=== PATIENT | female | born 1995 | race Caucasian/White ===

== ENCOUNTER 2022-04-23 01:16 | Emergency (ER) | payer MEDICARE, MEDICAID, SELFPAY ==
[2022-04-23 01:24] VITALS: BP 117/82; PULSE 124; RESP 18; TEMP 37; O2SAT 95; BMI 44.9
--- NOTE | 2022-04-23 01:33 | XRR_ITS ---
PROCEDURE INFORMATION: Exam: XR Chest Exam date and time: 04/23/2022 1:42 AM Age: 26 years old Clinical indication: Cough and fever; Patient HX: Cough with fever TECHNIQUE: Imaging protocol: Radiologic exam of the chest. Views: 1 view. COMPARISON: No relevant prior studies available. FINDINGS: Lungs: No CHF/pulmonary edema. Poor inspiration somewhat limits evaluation, especially of the lung bases. Visible lungs appear essentially clear. Pleural spaces: No visible pneumothorax. No definite pleural fluid. Heart/Mediastinum: Heart size is within normal limits. Bones/joints: No significant acute finding. XR/XR chest 1V portable [id number] IMPRESSION: 1. No definite pneumonia or CHF. 2. Other findings discussed above.
--- NOTE | 2022-04-23 01:42 | ED_ITS ---
HPI - General Adult General: Chief complaint: General Medical Stated complaint: Flu Like Symptoms Time Seen by Provider: 04/23/22 01:17 Source: patient Mode of arrival: ambulatory Limitations: no limitations History of Present Illness: 26-year-old female states that over the last 3 days she has been having fever cough congestion along with sore throat. States her temps been up to 101 states today her shortness of breath and cough is worsened. Father states that family members have had similar symptoms as well. She denies any vomiting denies any chest pain. Associated symptoms: Deny chest pain, headache(s), nausea, rash or vomiting Review of Systems Const: Reports: fever(s), chills and body aches Eyes: Denies: blurry vision or eye discomfort ENMT: Reports: throat pain Card: Denies: chest pain Resp: Reports: non-productive cough GI: Denies: abdominal pain, nausea, vomiting or diarrhea : Denies: dysuria Musc: Denies: neck pain or back pain Skin/Breast: Denies: rash Neuro: Denies: headache(s) Psych: Denies: depression Patrick/Lymph: Denies: easy bruising All/Imm: Denies: urticaria PFSH ED PFSH: Medical History (Updated 04/23/22 @ 02:56 by Aiyana Morgan MD) No pertinent past medical history Social History (Updated 04/23/22 @ 01:42 by Aiyana Morgan MD) Substance/Drug Use: never Physical Exam Const: COMMON NORMALS: no acute distress, patient oriented x3 and healthy appearing HENMT: COMMON NORMALS: normocephalic and atraumatic HEAD & SCALP: normoceph alic and atraumatic Eye: COMMON NORMALS: Equal, round and reactive pupils present and EOMs intact bilaterally PUPIL: Yes Equal, round and reactive pupils present Neck/C-Spine: COMMON NORMALS: full ROM and supple Chest: COMMONS NORMALS: normal inspection of the chest and normal palpation of entire chest wall Resp: COMMON NORMALS: normal respiratory effort, No retractions, No use of accessory muscles and clear to auscultation bilaterally AUSCULTATION: clear to auscultation bilaterally Cardio: COMMON NORMALS: regular rhythm and No murmurs present (Cardio) RA TE: tachycardic RHYTHM: regular rhythm GI: COMMON NORMALS: Normal to inspection, nondistended, normoactive bowel sounds present, Soft to palpation, non-tender and no masses PALPATION: Yes Soft to palpation Extremity: COMMON NORMALS: normal to inspection and full ROM Neuro: COMMON NORMALS: patient oriented x3, moves all extremities and no focal motor deficits Psych: COMMON NORMALS: mental status grossly normal, Normal thought process present and cooperative THOUGHT PROCESS: Normal thought process present Skin: COMMON NORMALS: no rashes or lesions noted and no wounds GENERAL SKIN EXAM: no rashes or lesions noted Course Vital Signs: Vital signs: Vital Signs Temperature 98.6 F 04/23/22 01:24 Pulse Rate 122 H 04/23/22 01:58 Respiratory Rate 16 04/23/22 01:58 Blood Pressure 104/79 04/23/22 01:58 Pulse Oximetry 96 04/23/22 01:58 Oxygen Delivery Me thod 04/23/22 01:58 MDM - General Adult Medical Decision Making Patient presents here with fever cough body aches for 3 days she is flu positive her heart rate here is improved after IV fluid she is well-appearing here no pneumonia she is stable for discharge she is to follow-up with her PCP and return if worsening. Lab Data 04/23/22 01:50 04/23/22 01:50 Laboratory Results WBC 4.7 10^3/uL (4.0-10.0) 04/23/22 01:50 RBC 5.27 10^6/uL (4.1-5.3) 04/23/22 01:50 Hgb 14.3 g/dL (11.5-15.3) 04/23/22 01:50 Hct 44.2 % (37.0-47.0) 04/23/22 01:50 MCV 83.9 fl (81-99) 04/23/22 01:50 MCH 27.1 pg (28.0-34.0) L 04/23/22 01:50 MCHC 32.4 g/dL (30.0-36.0) 04/23/22 01:50 RDW 13.2 % (12.1-15.1) 04/23/22 01:50 Plt Count 256 10^3/cmm (130-400) 04/23/22 01:50 MPV 9.5 fL (7.4-10.4) 04/23/22 01:50 Neut % (Auto) 62.7 % 04/23/22 01:50 Lymph % (Auto) 23.6 % 04/23/22 01:50 Wilkinson % (Auto) 13.1 % 04/23/22 01:50 Eos % (Auto) 0.0 % 04/23/22 01:50 Baso % (Auto) 0.2 % 04/23/22 01:50 Neut # (Auto) 2.92 10^3/uL (1.8-7.7) 04/23/22 01:50 Lymph # (Auto) 1.1 10^3/uL (0.8-4.8) 04/23/22 01:50 Wilkinson # (Auto) 0.6 10^3/uL (0.2-0.9) 04/23/22 01:50 Eos # (Auto) 0.0 10^3/uL (0.0-0.8) 04/23/22 01:50 Baso # (Auto) 0.0 10^3/uL (0.0-0.1) 04/23/22 01:50 Nucleated RBC % (auto) 0 % 04/23/22 01:50 Nucleated RBCs # 0.0 /100WBC 04/23/22 01:50 Sodium 138 mmol/L (136-145) 04/23/22 01:50 Potassium 3.5 mmol/L (3.5-5.1) 04/23/22 01:50 Chloride 105 mmol/L (98-107) 04/23/22 01:50 Carbon Dioxide 21 mmol/L (22-29) L 04/23/22 01:50 Anion Gap 15.5 (5-19) 04/23/22 01:50 BUN 6 mg/dL (6-20) 04/23/22 01:50 Creatinine 0.8 mg/dL (0.5-0.9) 04/23/22 01:50 GFR Calculation 86.7 mL/min (90-130) L 04/23/22 01:50 Glucose 184 mg/dL (65-115) H 04/23/22 01:50 Calculated Osmolality 288 mOsm/kg (285-295) 04/23/22 01:50 Calcium 8.3 mg/dL (8.5-10.5) L 04/23/22 01:50 Total Bilirubin 0.2 mg/dL (0.15-1.2) 04/23/22 01:50 AST 29 U/L (0-32) 04/23/22 01:50 ALT 40 U/L (0-33) H 04/23/22 01:50 Alkaline Phosphatase 90 U/L (35-105) 04/23/22 01:50 Total Protein 7.8 g/dL (6.6-8.7) 04/23/22 01:50 Albumin 4.0 g/dL (3.5-5.2) 04/23/22 01:50 Globulin 3.8 g/dL (1.3-4.6) 04/23/22 01:50 Influenza Type A Ag positive (Negative) H 04/23/22 01:50 Influenza Type B Ag negative (Negative) 04/23/22 01:50 SARS-CoV-2 Ag (Rapid) negative (Negative) 04/23/22 01:50 Discharge Plan Discharge Patient Disposition: Home Clinical Impression: Influenza A Discharge Orders: Discharge ED (Routine); Ordered 04/23/22 Ordered By: Aiyana Morgan Referrals: Di Clayton MD [Primary Care Provider] - 1-3 days Discharge Diet: Advance as tolerated Discharge Activity: Resume usual activity Patient Instructions: Influenza (ED) Coding Level of Care Code ED 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
[2022-04-23 01:58] VITALS: BP 104/79; PULSE 122; RESP 16; O2SAT 96
[2022-04-23] MEDS: acetaminophen 325 mg Tablet 650 MG PO (02:00)
[2022-04-23] MEDS: sodium chloride 0.9% 1,000 ML 999 ML IV (02:00)
[2022-04-23 02:08] LABS: Basophils % 0.2 %; Hematocrit 44.2 % (37.0-47.0); Hemoglobin 14.3 g/dL (11.5-15.3); Lymphocytes # 1.1 10^3/uL (0.8-4.8); Lymphocytes % 23.6 %; Mean Corpuscular HGB Conc 32.4 g/dL (30.0-36.0); Mean Corpuscular Hemoglobin 27.1 pg (28.0-34.0); Mean Corpuscular Volume 83.9 fl (81-99); Mean Platelet Volume 9.5 fL (7.4-10.4); Monocytes # 0.6 10^3/uL (0.2-0.9); Monocytes % 13.1 %; Neutrophils # 2.92 10^3/uL (1.8-7.7); Neutrophils % 62.7 %; Nucleated Red Blood Cells % 0 %; Platelet Count 256 10^3/cmm (130-400); Red Blood Count 5.27 10^6/uL (4.1-5.3); Red Cell Distribution Width 13.2 % (12.1-15.1); White Blood Count 4.7 10^3/uL (4.0-10.0)
[2022-04-23 02:16] LABS: Influenza A by IFA positive (Negative); Influenza B by IFA negative (Negative)
[2022-04-23 02:28] LABS: SARS Covid-2 Antigen negative (Negative)
[2022-04-23 02:40] LABS: Alanine Aminotransferase 40 U/L (0-33); Alkaline Phosphatase 90 U/L (35-105); Anion Gap 15.5 (5-19); Aspartate Amino Transferase 29 U/L (0-32); Blood Urea Nitrogen 6 mg/dL (6-20); Calcium 8.3 mg/dL (8.5-10.5); Carbon Dioxide 21 mmol/L (22-29); Chloride 105 mmol/L (98-107); Globulin 3.8 g/dL (1.3-4.6); Glomerular Filtration Rate 86.7 mL/min (90-130); Glucose 184 mg/dL (65-115); Osmolality Calculated 288 mOsm/kg (285-295); Potassium 3.5 mmol/L (3.5-5.1); Sodium 138 mmol/L (136-145); Total Bilirubin 0.2 mg/dL (0.15-1.2); Total Protein 7.8 g/dL (6.6-8.7)
== END 2022-04-23 03:15 | disposition home or self-care (01) ==
PROVIDERS: Emergency Provider Emergency Medicine; PCP Pediatrics Adolescent Medicine
DX: J10.1 Influenza due to other identified influenza virus with other respiratory manifestations (principal); Z20.822 Contact with and (suspected) exposure to COVID-19
CPT/HCPCS: 71045; 80053; 85025; 87426; 87804; 96360; 99284; J7030